=== PATIENT | male | born 1995 | race Caucasian/White ===

== ENCOUNTER 2017-09-24 01:00 | Emergency (ER) | payer OTHER ==
[~2017-09-24] VITALS: Ht 177.8 cm; Wt 97.0 kg
[~2017-09-24 01:00] MED LIST: AUGMENTIN875 MG PO; BACTRIM,SEPT1 TABLET PO; HYDROCODON-ACE1 EAC9 PO; KEFLEX500 MG PO; MOTRIN800 MG PO
[2017-09-24 01:46] LABS: HEMATOCRIT 40.6 % (38.0-50.0); HEMOGLOBIN 13.6 G/DL (12.5-16.6); MCH 29.9 PG (29.0-34.0); MCHC 33.5 G/DL (30.0-36.0); MCV 89.2 FL (86-99); PLATELET COUNT 224 K/uL (156-360); RBC DIS.WIDTH-CV 12.7 % (11.8-14.6); RED BLOOD COUNT 4.55 M/uL (4.00-5.50)
[2017-09-24 01:54] LABS: CHLORIDE 105 mEq/L (99-109); SODIUM 141 mEq/L (136-147)
[2017-09-24 01:56] LABS: GLUCOSE 93 mg/dL (70-99)
[2017-09-24 01:59] LABS: SERUM ETHYL ALCOHOL < 10 mg/dL
[2017-09-24 02:00] LABS: CREATININE 1.2 mg/dL (0.6-1.3); GFR ESTIMATE (CALCULATED) > 59 mL/min/ (58.99-99999)
[2017-09-24 02:01] LABS: UREA NITROGEN (BUN) 22 mg/dL (9-23)
[2017-09-24 03:25] LABS: APPEARANCE CLOUDY ((CLEAR)); BILIRUBIN NEGATIVE; BLOOD NEGATIVE; COLOR YELLOW ((YELLOW)); GLUCOSE (STRIP) NEGATIVE; KETONES NEGATIVE; LEUKOCYTES NEGATIVE; NITRITE NEGATIVE; PROTEIN (STRIP) NEGATIVE; SPECIFIC GRAVITY 1.024 (1.000-1.030); UROBILINOGEN 0.2 MG/DL (0.2-1.0)
[2017-09-24 03:34] LABS: AMPHETAMINE NEGATIVE (500 ng/mL); BARBITURATES NEGATIVE (200 ng/mL); BENZODIAZEPINES NEGATIVE (150 ng/mL); BUPRENORPHINE NEGATIVE (10 ng/mL); COCAINE NEGATIVE (150 ng/mL); METHADONE NEGATIVE (200 ng/mL); METHAMPHETAMINE NEGATIVE (500 ng/mL); OPIATES (MORPHINE) NEGATIVE (100 ng/mL); OXYCODONE NEGATIVE (100 ng/mL); PHENCYCLIDINE NEGATIVE (25 ng/mL); PROPOXYPHENE NEGATIVE (300 ng/mL); THC CANNABINOIDS NEGATIVE (50 ng/mL); TRICYCLIC ANTIDEPRESSANTS NEGATIVE (300 ng/mL)
[2017-09-24 03:43] LABS: BACTERIA RARE /HPF; EPITHELIAL CELLS NONE SEEN /HPF; MUCUS NONE SEEN /LPF; RED BLOOD CELLS 0-5 /HPF (0-5); UCUL ADDED? NO; WHITE BLOOD CELLS 0-5 /HPF (0-5)
[2017-09-24 05:57] VITALS: BP 145/87
== END 2017-09-24 05:57 | disposition home or self-care (01) ==
LOC: EME 01:00
PROVIDERS: Emergency Medicine
DX: R45.1 Restlessness and agitation (principal); R44.1 Visual hallucinations; S00.03XA Contusion of scalp, initial encounter; S60.221A Contusion of right hand, initial encounter; F43.20 Adjustment disorder, unspecified; W22.09XA Striking against other stationary object, initial encounter; F32.9 Major depressive disorder, single episode, unspecified; Z87.891 Personal history of nicotine dependence
CPT/HCPCS: 70450; 73130; 80048; 81003; 85027; 90839; 99281; 99285; G0480

== ENCOUNTER 2017-10-02 14:09 | Inpatient (IN) | payer OTHER ==
[~2017-10-02] VITALS: Ht 180.3 cm; Wt 93.2 kg
[2017-10-02 15:02] LABS: EOSINOPHIL (%) 1.3 % (0-5); EOSINOPHIL COUNT 0.1 K/uL (0-0.3); HEMATOCRIT 44.2 % (38.0-50.0); HEMOGLOBIN 14.7 G/DL (12.5-16.6); IMMATURE GRANULOCYTE (%) 0.3 % (0.0-0.7); LYMPHOCYTE (%) 37.6 % (15-42); LYMPHOCYTE COUNT 1.5 K/uL (1.0-2.8); MCH 29.7 PG (29.0-34.0); MCHC 33.3 G/DL (30.0-36.0); MCV 89.3 FL (86-99); MONOCYTE (%) 10.9 % (3-12); MONOCYTE COUNT 0.4 K/uL (0-0.8); NEUTROPHIL (%) 48.9 % (45-76); NEUTROPHIL COUNT 1.9 K/uL (1.8-6.4); PLATELET COUNT 247 K/uL (156-360); RBC DIS.WIDTH-SD 42.3 % (39-53); RED BLOOD COUNT 4.95 M/uL (4.00-5.50)
[2017-10-02 15:14] LABS: ALBUMIN 4.4 g/dL (3.2-4.8); CHLORIDE 103 mEq/L (99-109); POTASSIUM 3.8 mEq/L (3.7-5.4); SODIUM 139 mEq/L (136-147)
[2017-10-02 15:17] LABS: GLUCOSE 97 mg/dL (70-99); TOTAL PROTEIN 6.9 g/dL (6.4-8.3)
[2017-10-02 15:19] LABS: TOTAL BILIRUBIN 0.6 mg/dL (0.0-1.0)
[2017-10-02 15:20] LABS: ALKALINE PHOSPHATASE 60 IU/L (3-129); SERUM ETHYL ALCOHOL < 10 mg/dL
[2017-10-02 15:21] LABS: CREATININE 1.1 mg/dL (0.6-1.3); GFR ESTIMATE (CALCULATED) > 59 mL/min/ (58.99-99999)
[2017-10-02 15:22] LABS: AST (GOT) 19 IU/L (2-34); UREA NITROGEN (BUN) 14 mg/dL (9-23)
[2017-10-02 15:23] LABS: ALT (GPT) 16 IU/L (3-49)
[2017-10-02 15:36] LABS: AMPHETAMINE NEGATIVE (500 ng/mL); BARBITURATES NEGATIVE (200 ng/mL); BENZODIAZEPINES NEGATIVE (150 ng/mL); BUPRENORPHINE NEGATIVE (10 ng/mL); COCAINE NEGATIVE (150 ng/mL); METHADONE NEGATIVE (200 ng/mL); METHAMPHETAMINE NEGATIVE (500 ng/mL); OPIATES (MORPHINE) NEGATIVE (100 ng/mL); OXYCODONE NEGATIVE (100 ng/mL); PHENCYCLIDINE NEGATIVE (25 ng/mL); PROPOXYPHENE NEGATIVE (300 ng/mL); THC CANNABINOIDS NEGATIVE (50 ng/mL); TRICYCLIC ANTIDEPRESSANTS NEGATIVE (300 ng/mL)
[2017-10-02] MEDS ORDERED: ADVIL200 MG PO (17:23)
[2017-10-02 18:58] VITALS: BP 133/74
[2017-10-02 20:22] VITALS: BP 133/74
[2017-10-04 08:13] VITALS: BP 112/72
[2017-10-05 08:11] VITALS: BP 118/56
[2017-10-05 15:39] VITALS: BP 128/57
[2017-10-06 07:55] VITALS: BP 98/62
[2017-10-06] MEDS ORDERED: DEPAKOTE ER500 MG PO (08:50)
== END 2017-10-06 11:52 | disposition home or self-care (01) | DRG 883 ==
LOC: EME 14:09 → EDOF 16:40 → 1WEST 16:40 → ENRESERV 17:29 → 1WEST 18:55
PROVIDERS: Emergency Medicine
DX: F63.81 Intermittent explosive disorder (principal); R45.850 Homicidal ideations; F22 Delusional disorders; F39 Unspecified mood [affective] disorder; F60.9 Personality disorder, unspecified; Z87.891 Personal history of nicotine dependence; F32.9 Major depressive disorder, single episode, unspecified; Z87.828 Personal history of other (healed) physical injury and trauma; R45.4 Irritability and anger
CPT/HCPCS: 80053; 85025; 90839; 97165 GO; 99281; 99285; G0480; G9033; J1630; J2060